=== PATIENT | female | born 1950 | race Caucasian/White ===

== ENCOUNTER → 2017-06-13 | Outpatient (CLI) | payer OTHER | LOC: FIMAGING 11:12 | PROVIDERS: ATTEND Family Medicine | DX: Z12.31 Encounter for screening mammogram for malignant neoplasm of breast (principal) | CPT/HCPCS: G0202 ==

== ENCOUNTER → 2018-07-09 | Outpatient (CLI) | payer OTHER | LOC: BHCLAF 09:30 | PROVIDERS: ATTEND Internal Medicine Cardiovascular Disease | DX: Z01.810 Encounter for preprocedural cardiovascular examination (principal); R55 Syncope and collapse; R42 Dizziness and giddiness | CPT/HCPCS: 93005-PO ==

== ENCOUNTER → 2018-07-30 | Outpatient (CLI) | payer OTHER | LOC: BHCLAF 14:45 | PROVIDERS: ATTEND Internal Medicine Cardiovascular Disease | DX: R55 Syncope and collapse (principal) | CPT/HCPCS: 93306-PO ==

== ENCOUNTER → 2018-10-01 | Outpatient (CLI) | payer OTHER | LOC: FIMAGING 13:55 | PROVIDERS: ATTEND Family Medicine | DX: Z12.31 Encounter for screening mammogram for malignant neoplasm of breast (principal) ==

== ENCOUNTER 2018-10-30 08:51 | Emergency (ER) | payer OTHER ==
[2018-10-30] MEDS ORDERED: NS 1,000 ML IV ONE ×2 (09:04→10:09)
[2018-10-30] MEDS ORDERED: ONDANSETRON 4 MG/2 ML VIAL IVP ONE (09:12)
[2018-10-30] MEDS ORDERED: MECLIZINE HCL 25 MG TAB PO ONE (09:12)
--- NOTE | 2018-10-30 09:12 | EDPHY ---
H & P Stated Complaint: N/V feeling faint and dizzy since ~ 2:30 am Time Seen by Provider: 10/30/18 09:06 HPI/ROS: HPI: This is a 67-year-old female who presents with Chief Complaint: N/V feeling faint and dizzy since ~ 2:30 am Location: Head Quality: Dizziness Duration: Since around 2:30 a.m. Approximately 7 hr Signs and Symptoms: no fever, + nausea, + vomiting x2, no hematemesis, no blood in stool, no abdominal bloating, no diarrhea, no back pain, no urinary symptoms , no vaginal discharge/bleeding, no indigestion, no chest pain, no shortness of breath, no headache Timing: Acute, constant Severity: Moderate Context: Patient has a history of hypothyroidism, depression presents with waking up this morning around 2:30 a.m. Feeling dizzy that is described as lightheaded accompanied by nausea and 2 episodes of vomiting. She denies that the room is spinning, headache, visual changes, fever, upper respiratory symptoms. She has no prior history of vertigo. She ate a burrito out of the freezer around 6:00 p.m. Last night and believes that she may have food poisoning. She denies any abdominal pain, diarrhea, urinary symptoms, back pain. Patient has been sipping on liquids. Patient denies any rash or facial weakness. Received influenza vaccine this year. Patient reports that she does wear oxygen at night 2 L nasal cannula due to altitude hypoxia and does not require oxygen when she is at sea level. After further questioning patient has been on a "Fast Five" for the last 12 days. A consist of her not eating anything until 130 in the afternoon. She then kidney anything between 130 and 6 :30 p.m.. And then she is not allowed to eat anything from 6:30 p.m. Until 1: 30 p.m. The next day Modifying Factors: None Comment: ROS: A comprehensive 10 system review of systems is otherwise negative aside from elements mentioned in the history of present illness. MEDICAL/SURGICAL/SOCIAL HISTORY: Medical history: Hypothyroidism, depression, oxygen dependent at night with 2 L nasal cannula due to altitude hypoxia Surgical history: Appendectomy, bladder repair Social history: Retired. Nonsmoker. Denies illicit drug use. Family history noncontributory. CONSTITUTIONAL: Nontoxic-appearing, pale, elderly white female, awake and alert , no obvious distress HEENT: Atraumatic and normocephalic, PERRL, EOMI. Nares patent; no rhinorrhea; no nasal mucosal edema, no sinus tenderness. Tympanic membranes clear. Oropharynx clear, no exudate and moist pink mucosa. Airway patent. No lymphadenopathy. No meningismus. Cardiovascular: Normal S1/S2, regular rate, regular rhythm, without murmur rub or gallop. PULMONARY/CHEST: Symmetrical and nontender. Clear to auscultation bilaterally. Good air movement. No accessory muscle usage. ABDOMEN: Soft, nondistended, nontender, no rebound, no guarding, no peritoneal signs, no masses or organomegaly. No CVAT. EXTREMITIES: 2/2 pulses, strength 5/5, no deformities, no clubbing, no cyanosis or edema. NEUROLOGICAL: no focal neuro deficits. GCS 15. No reproduction of dizziness with [place]-Hallpike maneuver. No nystagmus. SKIN: Warm and dry, no erythema. no rash. Good capillary refill. Source: Patient Exam Limitations: No limitations - Medical/Surgical History Hx Asthma: No Hx Chronic Respiratory Disease: No Hx Diabetes: No Hx Cardiac Disease: No Hx Renal Disease: No Hx Cirrhosis: No Hx Alcoholism: No Hx HIV/AIDS: No Hx Splenectomy or Spleen Trauma: No Other PMH: APPY, BLADDER REPAIR - Social History Smoking Status: Former smoker Constitutional: Initial Vital Signs Temperature (C) 36.7 C 10/30/18 08:58 Heart Rate 84 10/30/18 08:58 Respiratory Rate 18 10/30/18 08:58 Blood Pressure 113/68 10/30/18 08:58 O2 Sat (%) 91 L 10/30/18 08:58 O2 Delivery Mode Nasal Cannula O2 (L/minute) 4 Allergies/Adverse Reactions: Penicillins Allergy (Verified 03/07/15 17:04) Sulfa (Sulfonamide Antibiotics) Allergy (Verified 03/07/15 17:04) Home Medications: Medication Instructions Recorded Synthroid 03/07/15 Citalopram 10/30/18 Ondansetron Odt [Zofran Odt 4 mg 4 mg PO Q4 PRN #12 tab 10/30/18 (*)] traZODone 10/30/18 Medical Decision Making - Diagnostics EKG Interpretation: 12 lead EKG: Indication: Dizziness Rhythm: Normal sinus rhythm [place]: Normal Intervals: Normal QRS: Normal ST segments: Flat INTERPRETATION: No acute ischemic changes The 12 lead EKG was interpreted by myself and with attending. Imaging Results: Imaging Impressions Chest X-Ray 10/30/18 09:48 Impression: 1. Chronic or recurrent peribronchial thickening suggesting bronchitis/airways disease. 2. Moderate hiatal hernia. 3. Additional findings as above. ED Course/Re-evaluation: Vital signs reviewed and show 91% oxygen saturation on room air. IV access, laboratory studies including POC troponin, EKG ordered Abdomen is soft and nontender. Doubt surgical process or need for imaging. Patient given 1 L normal saline, IV Zofran 4 mg and p. O. Meclizine 25 mg 0919: EKG my read with attending shows normal sinus rhythm with a rate of 76 beats per minute with nonspecific ST changes in flattened T-waves. 0940: Notified by tech that troponin 0.00 0949: Notified by RN that when patient was placed on the campus monitor her O2 sats were 54% on room air. Placed on 4 L nasal cannula and O2 sats 93%. Chest x-ray and BNP level ordered. 0955: Patient still complaining of nausea. Another 1 L normal saline for total 2 L normal saline and IV promethazine 12.5 mg given 1000: After further questioning patient patient reports that she is oxygen dependent at night 2 L nasal cannula due to elevation hypoxia but does not require oxygen at sea level. 1010: Chest x-ray my read shows moderate hiatal hernia, chronic bronchitic changes but no signs of opacity, effusion. Labs reviewed. No signs of leukocytosis/anemia/platelet dysfunction/RUY/ elevated LFTs/electrolyte imbalance/pancreatitis/CHF/ACS. 1046: Update from RN states that patient is still complaining of dizziness but no nausea now. Has received IV normal saline 1.5 L. IV Ativan 1 mg ordered 1130: Patient has mild dizziness. I believe that this is related to her fad diet of "fast five" and have advised her to stop fasting for long periods of time as this can contribute to her dizziness. I do not believe that head CT imaging is indicated at this time. This patient was seen under the supervision of my secondary supervising physician. I evaluated care for this patient independently. Discussed this patient with Dr. Moss who did not see the patient. Differential Diagnosis: Dizziness including but not limited to peripheral and central causes of vertigo , orthostatic causes including dehydration, and blood loss. - Data Points Laboratory Results: Laboratory Results 10/30/18 09:25 10/30/18 09:25 10/30/18 10/30/18 10/30/18 09:28 09:25 09:25 WBC RBC Hgb Hct MCV MCH MCHC RDW Plt Count MPV Neut % (Auto) Lymph % (Auto) [place] % (Auto) Eos % (Auto) Baso % (Auto) Nucleat RBC Rel Count Absolute Neuts (auto) Absolute Lymphs (auto) Absolute Monos (auto) Absolute Eos (auto) Absolute Basos (auto) Absolute Nucleated RBC Immature Gran % Immature Gran # Sodium 138 mEq/L mEq/L (135-145) Potassium 4.7 mEq/L mEq/L (3.5-5.2) Chloride 105 mEq/L mEq/L (97-110) Carbon Dioxide 26 mEq/l mEq/l (22-31) Anion Gap 7 mEq/L mEq/L (6-14) BUN 15 mg/dL mg/dL (7-23) Creatinine 0.8 mg/dL mg/dL (0.6-1.0) Estimated GFR > 60 Glucose 117 mg/dL H mg/dL (70-100) Calcium 9.3 mg/dL mg/dL (8.5-10.4) Total Bilirubin 0.4 mg/dL mg/dL (0.1-1.4) Conjugated Bilirubin 0.3 mg/dL mg/dL (0.0-0.5) Unconjugated Bilirubin 0.1 mg/dL mg/dL (0.0-1.1) AST 23 IU/L IU/L (14-46) ALT 23 IU/L IU/L (9-52) Alkaline Phosphatase 68 IU/L IU/L (38-126) POC Troponin I 0.00 ng/mL ng/mL (0.00-0.08) NT-Pro-B Natriuret Pep 60 pg/mL pg/mL (0-125) Total Protein 7.1 g/dL g/dL (6.3-8.2) Albumin 4.1 g/dL g/dL (3.5-5.0) Lipase 81 IU/L IU/L (23-300) 10/30/18 09:25 WBC 8.53 10^3/uL 10^3/uL (3.80-9.50) RBC 4.74 10^6/uL 10^6/uL (4.18-5.33) Hgb 14.7 g/dL g/dL (12.6-16.3) Hct 44.3 % % (38.0-47.0) MCV 93.5 fL fL (81.5-99.8) MCH 31.0 pg pg (27.9-34.1) MCHC 33.2 g/dL g/dL (32.4-36.7) RDW 13.0 % % (11.5-15.2) Plt Count 334 10^3/uL 10^3/uL (150-400) MPV 9.4 fL fL (8.7-11.7) Neut % (Auto) 79.8 % H % (39.3-74.2) Lymph % (Auto) 14.3 % L % (15.0-45.0) [place] % (Auto) 5.3 % % (4.5-13.0) Eos % (Auto) 0.2 % L % (0.6-7.6) Baso % (Auto) 0.2 % L % (0.3-1.7) Nucleat RBC Rel Count 0.0 % % (0.0-0.2) Absolute Neuts (auto) 6.80 10^3/uL H 10^3/uL (1.70-6.50) Absolute Lymphs (auto) 1.22 10^3/uL 10^3/uL (1.00-3.00) Absolute Monos (auto) 0.45 10^3/uL 10^3/uL (0.30-0.80) Absolute Eos (auto) 0.02 10^3/uL L 10^3/uL (0.03-0.40) Absolute Basos (auto) 0.02 10^3/uL 10^3/uL (0.02-0.10) Absolute Nucleated RBC 0.00 10^3/uL 10^3/uL (0-0.01) Immature Gran % 0.2 % % (0.0-1.1) Immature Gran # 0.02 10^3/uL 10^3/uL (0.00-0.10) Sodium Potassium Chloride Carbon Dioxide Anion Gap BUN Creatinine Estimated GFR Glucose Calcium Total Bilirubin Conjugated Bilirubin Unconjugated Bilirubin AST ALT Alkaline Phosphatase POC Troponin I NT-Pro-B Natriuret Pep Total Protein Albumin Lipase Medications Given: Discontinued Medications Sodium Chloride (Ns) 1,000 mls @ 0 mls/hr IV ONCE ONE; Wide Open PRN Reason: Protocol Stop: 10/30/18 09:05 Last Admin: 10/30/18 09:30 Dose: 1,000 mls Sodium Chloride (Ns) 1,000 mls @ 0 mls/hr IV ONCE ONE; Wide Open PRN Reason: Protocol Stop: 10/30/18 10:10 Last Admin: 10/30/18 10:09 Dose: 1,000 mls Lorazepam (Ativan Injection) 1 mg IVP EDNOW ONE Stop: 10/30/18 10:47 Last Admin: 10/30/18 10:50 Dose: 1 mg Meclizine HCl (Meclizine Hcl) 25 mg PO EDNOW ONE Stop: 10/30/18 09:13 Last Admin: 10/30/18 09:30 Dose: 25 mg Ondansetron HCl (Zofran) 4 mg IVP EDNOW ONE Stop: 10/30/18 09:13 Last Admin: 10/30/18 09:30 Dose: 4 mg Promethazine HCl (Phenergan) 12.5 mg IVP ONCE ONE Stop: 10/30/18 10:05 Last Admin: 10/30/18 10:07 Dose: 12.5 mg Point of Care Test Results: Chemistry 10/30/18 09:28 POC Troponin I 0.00 ng/mL ng/mL (0.00-0.08) Departure - Departure Disposition: Home, Routine, Self-Care Clinical Impression: Dizziness, nonspecific, Dieting Nausea with vomiting Qualifiers: Vomiting type: unspecified Vomiting Intractability: non-intractable Qualified Code(s): R11.2 - Nausea with vomiting, unspecified Condition: Good Instructions: Acute Nausea and Vomiting (ED), Dizziness (ED) Additional Instructions: Please stop dieting and resume regular eating pattern. I believe that the dieting/fasting has contributed to your dizziness. Consume a minimum of 8-10 glasses of water or electrolyte fluid replacement drinks that include Gatorade, Powerade, Pedialyte. Eat a bland diet for the next 48 hours and then slowly advance as tolerated. Take Zofran 1 tab every 4 hours as needed for nausea, vomiting. Return to the Emergency Room if symptoms do not resolve in the next 72 hours, you spike a fever > 102 F, or experience intractable abdominal pain/nausea/ vomiting. Referrals: DIALL[facility] SEARS [Non Staff Provider (MD)] - As per Instructions Prescriptions: Ondansetron Odt [Zofran Odt 4 mg (*)] 4 mg PO Q4 PRN #12 tab PRN Reason: Nausea/Vomiting, Use 1st
[2018-10-30 09:43] LABS: PLATELET COUNT 334 10^3/uL (150-400)
[2018-10-30] MEDS ORDERED: PROMETHAZINE HCL 25 MG/ML INJ IVP ONE (10:04)
[2018-10-30] MEDS ORDERED: LORazepam 2 MG/ML INJ IVP ONE (10:46)
[2018-10-30 12:13] VITALS: BP 110/67
--- NOTE | 2018-11-02 23:16 | CPEKG ---
Test Reason : OPEN Blood Pressure : / mmHG Vent. Rate : 076 BPM Atrial Rate : 076 BPM P-R Int : 147 ms QRS Dur : 091 ms QT Int : 393 ms P-R-T Axes : 060 043 066 degrees QTc Int : 442 ms Sinus rhythm Confirmed by Giselle Hendricks ([id number]) on 11/02/2018 11:16:14 PM Referred By: Confirmed By:Giselle Hendricks
== END 2018-10-30 12:12 | disposition home or self-care (01) ==
DX: R42 Dizziness and giddiness (principal); R11.2 Nausea with vomiting, unspecified; E03.9 Hypothyroidism, unspecified; E86.9 Volume depletion, unspecified; Z90.89 Acquired absence of other organs; Z99.81 Dependence on supplemental oxygen
CPT/HCPCS: 71046; 93005; 96361; 96374; 96375; 99285; J2060; J2405; J2550; 84484-ER